=== PATIENT | female | born 1980 | race African-American/Black ===

== ENCOUNTER 2017-10-14 15:09 | Inpatient (IN) | payer OTHER ==
--- NOTE | 2017-10-14 15:29 | PDOC ---
Rapid Medical Evaluation Time Seen by Provider: 10/14/17 15:23 Medical Evaluation: Allergies Allergy/AdvReac Type Severity Reaction Status Date / Time No Known Allergies Allergy Verified 10/14/17 15:23 10/14/17 15:24 I have performed a brief in-person evaluation of this patient. The patient presents with a chief complaint of: off pill for months, started last week again by OBGYN, "serious cramping", constipated, vomited today Pertinent physical exam findings: uncomfortable appearing I have ordered the following: labs The patient will proceed to the ED for further evaluation. Discharge Disposition - Diagnosis Abdominal pain - Referrals - Patient Instructions - Post Discharge Activity
[2017-10-14 18:00] LABS: INR 1.05 (0.82-1.09); PROTHROMBIN TIME (PATIENT) 11.9 SEC (9.98-11.88)
[2017-10-14 18:17] LABS: ALBUMIN 4.5 g/dl (3.4-5.0); ANION GAP 11 (8-16); BLOOD UREA NITROGEN 11 mg/dL (7-18); CALCIUM 9.1 mg/dL (8.5-10.1); CHLORIDE 103 mmol/L (98-107); CO2 22 mmol/L (21-32); CREATININE 0.8 mg/dL (0.55-1.02); GLUCOSE,RANDOM 135 mg/dL (74-106); SGPT/ALT 30 U/L (12-78); SODIUM 136 mmol/L (136-145)
[2017-10-14 18:19] LABS: ALK PHOS 74 U/L (45-117); BILIRUBIN,TOTAL 0.8 mg/dL (0.2-1.0); TOT PROT 8.6 g/dl (6.4-8.2)
[2017-10-14 18:20] LABS: POTASSIUM 4.2 mmol/L (3.5-5.1); SGOT/AST 24 U/L (15-37)
--- NOTE | 2017-10-14 19:49 | PDOC ---
History of Present Illness - General History Source: Patient Exam Limitations: No Limitations - History of Present Illness Initial Comments: 10/14/17 20:49 Patient is a 37 year old female with no significant past medical history who presents to the ED with complaints of of diffuse abdominal cramping that began this morning. Patient reports experiencing abdominal cramping this morning that she states began after going back onto prescription of control medication. She reports experiencing intermittent episodes of nausea, and vomiting. Patient reports experiencing constipation ,stating she has not been able to have a bowel movement all day today. Denies chest pain, sob. Denies fevers, chills. Denies contact with sick individuals, out of state travelling. Denies any other symptoms. Allergies: None Social history: No smoking. No alcohol. No illicit drugs. Surgical history: None PMD: None <Leobardo Hobbs - Last Filed: 10/14/17 20:49> - General History Source: Patient <Conner Tavares - Last Filed: 10/15/17 00:47> - General Stated Complaint: ABD PAIN, NAUSEA/VOMITING Time Seen by Provider: 10/14/17 15:23 Past History <Leobardo Hobbs - Last Filed: 10/14/17 20:49> - Past Medical History Asthma: No Cancer: No Cardiac Disorders: No COPD: No Diabetes: No HTN: No Seizures: No Thyroid Disease: No - Suicide/Smoking/Psychosocial Hx Smoking History: Never smoked Have you smoked in the past 12 months: No Hx Alcohol Use: No Drug/Substance Use Hx: No Substance Use Type: None Hx Substance Use Treatment: No <Conner Tavares - Last Filed: 10/15/17 00:47> - Past Medical History Allergies/Adverse Reactions: Allergies Allergy/AdvReac Type Severity Reaction Status Date / Time No Known Allergies Allergy Verified 10/14/17 15:23 Home Medications: Ambulatory Orders Norgestimate-Ethinyl Estradiol [Ortho Tri-Cyclen Lo Tablet] 1 each PO DAILY Review of Systems - Review of Systems Able to Perform ROS?: Yes Comments:: 10/14/17 20:50 CONSTITUTIONAL: Absent: fever, no chills, no fatigue EYES: Absent: visual changes ENT: Absent: ear pain, no sore throat CARDIOVASCULAR: Absent: chest pain, no palpitations RESPIRATORY: Absent: cough, no SOB GI: +Abdominal cramping. +Nausea. +vomiting. +constipation. Absent: no diarrhea GENITOURINARY: Absent: dysuria, no frequency, no hematuria MUSCULOSKELETAL: Absent: back pain, no arthralgia, no myalgia SKIN: Absent: rash All Other Systems: Reviewed and Negative <Leobardo Hobbs - Last Filed: 10/14/17 20:49> *Physical Exam - Vital Signs Last Vital Signs Temp Pulse Resp BP Pulse Ox 98.2 F 70 18 128/96 100 10/14/17 15:23 10/14/17 15:23 10/14/17 15:23 10/14/17 15:23 10/14/17 15:23 - Physical Exam Comments: 10/14/17 20:51 GENERAL: Well-appearing, well-nourished. No apparent distress. HEENT: Normocephalic, atraumatic. PERRL, EOM intact. CARDIOVASCULAR: Normal S1, S2. Regular rate and rhythm. PULMONARY: Clear to auscultation bilaterally. ABDOMEN: +Mildly diffusely tenderness throughout abdomen. Soft, non-distended, non-tender. EXTREMITIES: Normal ROM in all four extremities. No gross deformities. SKIN: Warm, dry. No rash NEUROLOGICAL: No focal neurological deficits. <FabyLeobardo - Last Filed: 10/14/17 20:49> - Vital Signs Last Vital Signs Temp Pulse Resp BP Pulse Ox 98.2 F 70 18 128/96 100 10/14/17 15:23 10/14/17 15:23 10/14/17 15:23 10/14/17 15:23 10/14/17 15:23 <Conner Tavares - Last Filed: 10/15/17 00:47> ED Treatment Course - LABORATORY CBC & Chemistry Diagram: 10/14/17 17:18 - ADDITIONAL ORDERS Additional order review: Laboratory Results 10/14/17 10/14/17 10/14/17 18:35 18:35 17:18 PT with INR 11.90 H INR 1.05 Sodium Potassium Chloride Carbon Dioxide Anion Gap BUN Creatinine Creat Clearance w eGFR Random Glucose Calcium Total Bilirubin AST ALT Alkaline Phosphatase Total Protein Albumin Lipase Urine Color Yellow Urine Appearance Clear Urine pH 7.0 Ur Specific [place] 1.024 Urine Protein Negative Urine Glucose (UA) Negative Urine Ketones Trace H Urine Blood 1+ H Urine Nitrite Negative Urine Bilirubin Negative Urine Urobilinogen Negative Ur Leukocyte Esterase Negative Urine HCG, Qual Negative 10/14/17 10/14/17 17:18 17:17 PT with INR INR Sodium 136 Potassium 4.2 Chloride 103 Carbon Dioxide 22 Anion Gap 11 BUN 11 Creatinine 0.8 Creat Clearance w eGFR > 60 Random Glucose 135 H Calcium 9.1 Total Bilirubin 0.8 D AST 24 ALT 30 Alkaline Phosphatase 74 Total Protein 8.6 H Albumin 4.5 Lipase 111 Urine Color Urine Appearance Urine pH Ur Specific [place] Urine Protein Urine Glucose (UA) Urine Ketones Urine Blood Urine Nitrite Urine Bilirubin Urine Urobilinogen Ur Leukocyte Esterase Urine HCG, Qual <Leobardo Hobbs - Last Filed: 10/14/17 20:49> - LABORATORY CBC & Chemistry Diagram: 10/14/17 20:40 10/14/17 17:18 - ADDITIONAL ORDERS Additional order review: Laboratory Results 10/14/17 10/14/17 17:18 17:18 PT with INR 11.90 H INR 1.05 Sodium 136 Potassium 4.2 Chloride 103 Carbon Dioxide 22 Anion Gap 11 BUN 11 Creatinine 0.8 Creat Clearance w eGFR > 60 Random Glucose 135 H Calcium 9.1 Total Bilirubin 0.8 D AST 24 ALT 30 Alkaline Phosphatase 74 Total Protein 8.6 H Albumin 4.5 <Conner Tavares - Last Filed: 10/15/17 00:47> Medical Decision Making - Medical Decision Making 10/15/17 00:45 Dr. Tavares: The scribe's documentation has been prepared under my direction and personally reviewed by me in its entirery. I confirm that the note above accurately reflects all work, treatment, procedures, and medical decision making performed by me. Patient found acute appendicitis on CAT scan the abdomen pelvis. patient hemodynamically stable. Will antibiotics and admit pt. <Conner Tavares - Last Filed: 10/15/17 00:47> *DC/Admit/Observation/Transfer - Attestations Scribe Attestion: 10/14/17 20:51 Documentation prepared by Leobardo Hobbs, acting as certified medical asst for Conner Tavares MD/DO. <Leobardo Hobbs - Last Filed: 10/14/17 20:49> - Discharge Dispostion Admit: Yes <Conner Tavares - Last Filed: 10/15/17 00:47> Diagnosis at time of Disposition: Abdominal pain Qualifiers: Abdominal location: generalized Qualified Code(s): R10.84 - Generalized abdominal pain Acute appendicitis Qualifiers: Acute appendicitis type: other Qualified Code(s): K35.89 - Other acute appendicitis - Discharge Dispostion Condition at time of disposition: Stable
[2017-10-14] MEDS ORDERED: SODIUM PHOSPHATE/NA BIPHOS 133 ML ENEMA PR ONE (19:50)
[2017-10-14] MEDS ORDERED: ONDANSETRON *ODT* 4 MG TABLET SL ONE (19:50)
[2017-10-14] MEDS ORDERED: ONDANSETRON *ODT* 4 MG TABLET ONE (20:04)
[2017-10-14 20:39] LABS: URINE APPEARANCE CLEAR; URINE BILIRUBIN NEGATIVE (NEGATIVE); URINE BLOOD 1+ (NEGATIVE); URINE COLOR YELLOW; URINE GLUCOSE (UA) NEGATIVE (NEGATIVE); URINE KETONE TRACE (NEGATIVE); URINE LEUK ESTERASE NEGATIVE (NEGATIVE); URINE NITRITE NEGATIVE (NEGATIVE); URINE PROTEIN NEGATIVE (NEGATIVE); URINE UROBILINOGEN NEGATIVE mg/dL (0.2-1.0)
[2017-10-14 20:53] LABS: EPI CELLS RARE /HPF (FEW); URINE BACTERIA RARE /hpf (NONE SEEN); URINE MUCUS RARE
[2017-10-14] MEDS ORDERED: KETOROLAC TROMETHAMINE 30 MG/1 ML VIAL IVPUSH ONE (21:20)
[2017-10-14] MEDS ORDERED: KETOROLAC TROMETHAMINE 30 MG/1 ML VIAL ONE (21:29)
[2017-10-14 21:41] LABS: BASO % 0.3 % (0-2.0); HEMATOCRIT 39.3 % (32.4-45.2); HEMOGLOBIN 12.7 GM/dL (10.7-15.3); LYMPH % 4.4 % (8-40); MCH 27.2 pg (25.7-33.7); MCHC 32.2 g/dl (32.0-36.0); MEAN CELL VOLUME 84.3 fl (80-96); MEAN PLT VOLUME 9.9 fl (7.5-11.1); MONO % 6.9 % (3.8-10.2); NEUT % 88.4 % (42.8-82.8); PLATELET COUNT 224 K/MM3 (134-434); RBC 4.66 M/mm3 (3.60-5.2); RDW 13.1 % (11.6-15.6); WHITE BLOOD COUNT 14.7 K/mm3 (4.0-10.0)
[2017-10-14] MEDS ORDERED: LACTULOSE 20 GM/30 ML UDC (FOR ORAL USE ONLY) PO ONE ×2 (21:52→22:00)
[2017-10-14] MEDS ORDERED: LACTULOSE 20 GM/30 ML UDC (FOR ORAL USE ONLY) ONE ×2 (21:53→22:01)
[2017-10-14] MEDS ORDERED: INSULIN (NOVOLOG) ASPART 100 UNITS/ML 10ML VIAL ONE (22:01)
[2017-10-14] MEDS ORDERED: SODIUM CHLORIDE 1,000 ML IV STA (22:16)
[2017-10-15] MEDS ORDERED: PIPERACILLIN/TAZOB 4.5 GM 4.5 GM/100 ML BAG IVPB ONE ×2 (00:51→01:41)
--- NOTE | 2017-10-15 01:32 | PN ---
Teaching Attending Note Name of Resident: Elaine Marrero ATTENDING PHYSICIAN STATEMENT I saw and evaluated the patient. I reviewed the resident's note and discussed the case with the resident. I agree with the resident's findings and plan as documented. SUBJECTIVE: 37 F with no Pmhx who presents with lower quadrant abdominal pain. Pain is non radiating. States she vomited X1 this morning NBNB. States she has had intermittent episodes of nausea. States she had worsened pain when traveling in a car. Notes she felt chills, and subjective fevers at home. States pain has now subsided. Denies any chest pain, pressure or n/v/d currently. States she recently received pain medication and thus has no abdominal pain. OBJECTIVE: Physical: VS: Vital Signs Period Temp Pulse Resp BP Sys/[place] Pulse Ox Last 24 Hr 98.2 F 70 18 128/96 100 GEN: NAD, Resting in bed, AAOX3 HEENT: NCAT, PERRL, throat without erythema or exudates CARD: RRR S1, S2 RESP: CTAB ABD: BSx4, NTD to palpation EXT: - C/C/E CBCD WBC 14.7 K/mm3 (4.0-10.0) H 10/14/17 20:40 RBC 4.66 M/mm3 (3.60-5.2) D 10/14/17 20:40 Hgb 12.7 GM/dL (10.7-15.3) D 10/14/17 20:40 Hct 39.3 % (32.4-45.2) D 10/14/17 20:40 MCV 84.3 fl (80-96) 10/14/17 20:40 MCHC 32.2 g/dl (32.0-36.0) 10/14/17 20:40 RDW 13.1 % (11.6-15.6) 10/14/17 20:40 Plt Count 224 K/MM3 (134-434) 10/14/17 20:40 MPV 9.9 fl (7.5-11.1) D 10/14/17 20:40 CMP Sodium 136 mmol/L (136-145) 10/14/17 17:18 Potassium 4.2 mmol/L (3.5-5.1) 10/14/17 17:18 Chloride 103 mmol/L (98-107) 10/14/17 17:18 Carbon Dioxide 22 mmol/L (21-32) 10/14/17 17:18 Anion Gap 11 (8-16) 10/14/17 17:18 BUN 11 mg/dL (7-18) 10/14/17 17:18 Creatinine 0.8 mg/dL (0.55-1.02) 10/14/17 17:18 Creat Clearance w eGFR > 60 (>60) 10/14/17 17:18 Random Glucose 135 mg/dL (74-106) H 10/14/17 17:18 Calcium 9.1 mg/dL (8.5-10.1) 10/14/17 17:18 Total Bilirubin 0.8 mg/dL (0.2-1.0) D 10/14/17 17:18 AST 24 U/L (15-37) 10/14/17 17:18 ALT 30 U/L (12-78) 10/14/17 17:18 Alkaline Phosphatase 74 U/L (45-117) 10/14/17 17:18 Total Protein 8.6 g/dl (6.4-8.2) H 10/14/17 17:18 Albumin 4.5 g/dl (3.4-5.0) 10/14/17 17:18 EKG- PENDING CT ABD/PELVIS: 1.8 Cm Appendix containing fluid and multiple appendicoliths c/w acute appendicitis. Umbilical hernia containing fat. Incidental Hemangioma L2. ASSESSMENT AND PLAN: 37 F with no pmhx presents with abdominal Pain, found to have a acute appendicitis 1.) Acute Appendicitis - NPO - Type & Screen - Coags - Zosyn - Sx. Consult - IVF 2.) Dvt ppx - Scds Place in Med-Sx
[2017-10-15] MEDS ORDERED: MORPHINE SULFATE 10 MG/1 ML *VIAL IVPUSH PRN ×4 (02:28→16:42)
--- NOTE | 2017-10-15 03:10 | HP ---
CHIEF COMPLAINT: Abdominal pain and vomiting x 1 day PCP: HISTORY OF PRESENT ILLNESS: Pt is a 37 yo F with no sig PMHx presenting with a one day hx of abdominal pain and vomiting. The pain was 10/10, initially periumbilical then radiating to the suprapubic area. It was worsened by ingestion of food with associated vomiting. Patient had over 5 episodes of vomiting, non bloody, recently ingested food/liquids. There was no diarrhea, but there was associated constipation and dysuria, but no increased urinary frequency. Patient noted chills but had no objectively documented fevers prior to presentation. No change in diet, and no recent sick contacts or contacts with similar symptoms. No hx of recent travel. Patient presented in the ED today an requested enemas for 'constipation" with no relief and was found on Ct abdoment and pelvis to have acute appendicitis. ER course was notable for: (1)WBC-14.7, Lactic acid-3.24 (2) Cx- bld, urine (3) CT abd/pelvis- acute appendicitis (4) normal saline 1L, zosyn, enema, ketorolac, lactulose, zofran Recent Travel: None PAST MEDICAL HISTORY: None PAST SURGICAL HISTORY: None Social History: Smoking:Never Alcohol:Social Drugs: None Family History: Allergies No Known Allergies Allergy (Verified 10/14/17 15:23) HOME MEDICATIONS: Home Medications Medication Instructions Recorded Norgestimate-Ethinyl Estradiol 1 each PO DAILY 10/14/17 [Ortho Tri-Cyclen Lo Tablet] REVIEW OF SYSTEMS CONSTITUTIONAL: chills+, loss of appetite+, Absent: fever, diaphoresis, generalized weakness, malaise, weight change HEENT: Absent: rhinorrhea, nasal congestion, throat pain, throat swelling, difficulty swallowing, mouth swelling, ear pain, eye pain, visual changes CARDIOVASCULAR: Absent: chest pain, syncope, palpitations, irregular heart rate, lightheadedness , peripheral edema RESPIRATORY: Absent: cough, shortness of breath, dyspnea with exertion, orthopnea, wheezing, stridor, hemoptysis GASTROINTESTINAL: abdominal pain+, nausea+, vomiting+,constipation+ Absent: abdominal distension, diarrhea, , melena, hematochezia GENITOURINARY: dysuria+, Absent: frequency, urgency, hesitancy, hematuria, flank pain, genital pain MUSCULOSKELETAL: Absent: myalgia, arthralgia, joint swelling, back pain, neck pain SKIN: Absent: rash, itching, pallor HEMATOLOGIC/IMMUNOLOGIC: Absent: easy bleeding, easy bruising, lymphadenopathy, frequent infections ENDOCRINE: Absent: unexplained weight gain, unexplained weight loss, heat intolerance, cold intolerance NEUROLOGIC: Absent: headache, focal weakness or paresthesias, dizziness, unsteady gait, seizure, mental status changes, bladder or bowel incontinence PSYCHIATRIC: Absent: anxiety, depression, suicidal or homicidal ideation, hallucinations. PHYSICAL EXAMINATION Vital Signs - 24 hr 10/14/17 15:23 Temperature 98.2 F Pulse Rate 70 Respiratory 18 Rate Blood Pressure 128/96 O2 Sat by Pulse 100 Oximetry (%) GENERAL: Sitting up in a chair, awake, alert, and fully oriented, in no acute painful distress, sating well in room air. HEAD: Mild facial asymmetry, with scar on R lower jaw. No facial droop. EYES: Pupils equal, round and reactive to light, not pale, sclera anicteric, conjunctiva clear. EARS, NOSE, THROAT: oropharynx clear without exudates. Moist mucous membranes. NECK: Normal range of motion, supple LUNGS: Breath sounds equal, clear to auscultation bilaterally. HEART: Regular rate and rhythm, normal S1 and S2 ABDOMEN: Full, firm, mild supra pubic tenderness, bowel sounds present, no guarding, no rebound, no masses. Psoas and obturator signs could not be elicited MUSCULOSKELETAL: Normal range of motion at all joints. No bony deformities or tenderness. No CVA tenderness. UPPER EXTREMITIES: 2+ pulses, warm, well-perfused. No cyanosis. No clubbing. No peripheral edema. LOWER EXTREMITIES: 2+ pulses, warm, well-perfused. No calf tenderness. No peripheral edema. NEUROLOGICAL: Cranial nerves II-XII intact. Normal speech. PSYCHIATRIC: Cooperative. Good eye contact. Appropriate mood and affect. Laboratory Results - last 24 hr CBC, BMP 10/14/17 20:40 10/14/17 17:18 10/14/17 10/14/17 10/14/17 17:17 17:18 17:18 WBC RBC Hgb Hct MCV MCH MCHC RDW Plt Count MPV Neutrophils % Lymphocytes % Monocytes % Eosinophils % Basophils % PT with INR 11.90 H INR 1.05 Sodium 136 Potassium 4.2 Chloride 103 Carbon Dioxide 22 Anion Gap 11 BUN 11 Creatinine 0.8 Creat Clearance w eGFR > 60 Random Glucose 135 H Lactic Acid Calcium 9.1 Total Bilirubin 0.8 D AST 24 ALT 30 Alkaline Phosphatase 74 Total Protein 8.6 H Albumin 4.5 Lipase 111 Urine Color Urine Appearance Urine pH Ur Specific [place] Urine Protein Urine Glucose (UA) Urine Ketones Urine Blood Urine Nitrite Urine Bilirubin Urine Urobilinogen Ur Leukocyte Esterase Urine WBC (Auto) Urine RBC (Auto) Ur Epithelial Cells Urine Bacteria Urine Mucus Urine HCG, Qual Blood Type Antibody Screen 10/14/17 10/14/17 10/14/17 18:35 18:35 18:35 WBC RBC Hgb Hct MCV MCH MCHC RDW Plt Count MPV Neutrophils % Lymphocytes % Monocytes % Eosinophils % Basophils % PT with INR INR Sodium Potassium Chloride Carbon Dioxide Anion Gap BUN Creatinine Creat Clearance w eGFR Random Glucose Lactic Acid 3.2 H* Calcium Total Bilirubin AST ALT Alkaline Phosphatase Total Protein Albumin Lipase Urine Color Yellow Urine Appearance Clear Urine pH 7.0 Ur Specific [place] 1.024 Urine Protein Negative Urine Glucose (UA) Negative Urine Ketones Trace H Urine Blood 1+ H Urine Nitrite Negative Urine Bilirubin Negative Urine Urobilinogen Negative Ur Leukocyte Esterase Negative Urine WBC (Auto) 1 Urine RBC (Auto) 36 Ur Epithelial Cells Rare Urine Bacteria Rare Urine Mucus Rare Urine HCG, Qual Blood Type B POSITIVE Antibody Screen Negative 10/14/17 10/14/17 10/15/17 18:35 20:40 01:06 WBC 14.7 H RBC 4.66 D Hgb 12.7 D Hct 39.3 D MCV 84.3 MCH 27.2 MCHC 32.2 RDW 13.1 Plt Count 224 MPV 9.9 D Neutrophils % 88.4 H Lymphocytes % 4.4 L D Monocytes % 6.9 Eosinophils % 0.0 D Basophils % 0.3 PT with INR INR Sodium Potassium Chloride Carbon Dioxide Anion Gap BUN Creatinine Creat Clearance w eGFR Random Glucose Lactic Acid 1.9 Calcium Total Bilirubin AST ALT Alkaline Phosphatase Total Protein Albumin Lipase Urine Color Urine Appearance Urine pH Ur Specific [place] Urine Protein Urine Glucose (UA) Urine Ketones Urine Blood Urine Nitrite Urine Bilirubin Urine Urobilinogen Ur Leukocyte Esterase Urine WBC (Auto) Urine RBC (Auto) Ur Epithelial Cells Urine Bacteria Urine Mucus Urine HCG, Qual Negative Blood Type Antibody Screen ASSESSMENT/PLAN: 37 yo F with no sig PMHx presenting with a one day hx of abdominal pain and vomiting and found to have acute appendicitis on CT abd/pelvis with contrast. Acute appendicitis: Leucocytosis-14, periumbilical and lower abd pain, n/v, CT findings Pain mx- received ketorolac in ED, iv morphine 2mg /1mg Q4h PRN Iv Normal saline - 1L stat- received Trend Lactic acid 3.24>> 1.9 ID consult- Dr Amira Moody 4.45g daily NPO EKG Type and screen Coags Surgical consult- Dr Radha Garzon Hold heparin SQ- for surgery SCDs Monitor lytes and replete as needed UA--ve Cx- bld and urine- pending CXR-no acute pathology noted FEN: Normal saline @83/hr Monitor lytes, replete as needed NPO for now Prophylaxis: SCDs- hold heparin sq Dispo: Admit med surg Visit type - Emergency Visit Emergency Visit: Yes ED Registration Date: 10/15/17 Care time: The patient presented to the Emergency Department on the above date and was hospitalized for further evaluation of their emergent condition. - New Patient This patient is new to me today: Yes Date on this admission: 10/15/17 - Critical Care Critical Care patient: No
[2017-10-15] MEDS ORDERED: SODIUM CHLORIDE 1,000 ML IV SCH (03:15)
[2017-10-15 07:45] LABS: BASO % 0.1 % (0-2.0); HEMOGLOBIN 11.4 GM/dL (10.7-15.3); LYMPH % 5.6 % (8-40); MCH 27.3 pg (25.7-33.7); MCHC 32.5 g/dl (32.0-36.0); MEAN CELL VOLUME 83.9 fl (80-96); MEAN PLT VOLUME 9.1 fl (7.5-11.1); MONO % 8.8 % (3.8-10.2); NEUT % 85.5 % (42.8-82.8); PLATELET COUNT 214 K/MM3 (134-434); RBC 4.16 M/mm3 (3.60-5.2); RDW 13.2 % (11.6-15.6); WHITE BLOOD COUNT 15.9 K/mm3 (4.0-10.0)
[2017-10-15 07:51] LABS: INR 1.36 (0.82-1.09); PROTHROMBIN TIME (PATIENT) 15.4 SEC (9.98-11.88)
[2017-10-15 08:26] LABS: CHLORIDE 105 mmol/L (98-107); POTASSIUM 3.5 mmol/L (3.5-5.1); SODIUM 138 mmol/L (136-145)
[2017-10-15 08:33] LABS: ALBUMIN 3.7 g/dl (3.4-5.0); ALK PHOS 61 U/L (45-117); ANION GAP 11 (8-16); BILIRUBIN,TOTAL 0.8 mg/dL (0.2-1.0); BLOOD UREA NITROGEN 11 mg/dL (7-18); CO2 22 mmol/L (21-32); CREATININE 0.9 mg/dL (0.55-1.02); GLUCOSE,RANDOM 116 mg/dL (74-106); MAGNESIUM 1.8 mg/dL (1.8-2.4); PHOSPHOROUS 3.5 mg/dL (2.5-4.9); SGOT/AST 17 U/L (15-37); SGPT/ALT 24 U/L (12-78)
[2017-10-15] MEDS ORDERED: D5-NS + 20 MEQ KCL - 20 MEQ/1,000 ML INFUS.BAG IV SCH ×2 (09:45→16:42)
[2017-10-15] MEDS ORDERED: MORPHINE SULFATE 10 MG/1 ML *VIAL ONE (12:20)
[2017-10-15] MEDS ORDERED: DEXAMETHASONE SOD PHOSPHATE 4 MG/1 ML VIAL ONE (13:50)
[2017-10-15] MEDS ORDERED: LIDOCAINE HCL 2% 100 MG/5 ML DISP.SYRIN ONE (13:50)
[2017-10-15] MEDS ORDERED: PROPOFOL 20 ML ONE (13:50)
[2017-10-15] MEDS ORDERED: fentaNYL CITRATE 250 MCG/5 ML VIAL ONE (13:50)
[2017-10-15] MEDS ORDERED: MIDAZOLAM HCL 2 MG/2 ML SINGLE DOSE VIAL ONE (13:51)
[2017-10-15] MEDS ORDERED: ROCURONIUM BROMIDE 50 MG/5 ML VIAL ONE (13:51)
--- NOTE | 2017-10-15 13:54 | PN ---
Progress Note (short form) - Note Progress Note: surgery pt seen and examined. full consult dictated. 37f with 1 day abd pain and vomiting with elevated wbc and ct showing acute appencitis. on exam abd is soft, with localized rlq tenderness Plan- clinically acute appendictis, agree with admission and zosyn. will move in direction of surgery.
--- NOTE | 2017-10-15 14:02 | CON.ID ---
Consult Consult Specialty:: infectious diseases Reason for Consultation:: abd pain,appendicitis - History of Present Illness Chief Complaint: abd pain rlq History of Present Illness: 37 yo F with no PMHx presenting with a one day hx of abdominal pain and vomiting. patient was having severe abd pain which was classical which was also associated with vomiting and was worsened with food. 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) - Alcohol/Substance Use Hx Alcohol Use: No History of Substance Use: reports: None - Smoking History Smoking history: Never smoked Have you smoked in the past 12 months: No - Social History History of Recent Travel: No Home Medications - Allergies Allergies/Adverse Reactions: Allergies Allergy/AdvReac Type Severity Reaction Status Date / Time No Known Allergies Allergy Verified 10/14/17 15:23 - Home Medications Home Medications: Ambulatory Orders Norgestimate-Ethinyl Estradiol [Ortho Tri-Cyclen Lo Tablet] 1 each PO DAILY Review of Systems - Review of Systems Constitutional: reports: Chills Eyes: reports: No Symptoms HENT: reports: No Symptoms Neck: reports: No Symptoms Cardiovascular: reports: No Symptoms Respiratory: reports: No Symptoms Gastrointestinal: reports: Abdominal Pain, Vomiting Genitourinary: reports: No Symptoms Musculoskeletal: reports: No Symptoms Integumentary: reports: No Symptoms Neurological: reports: No Symptoms Endocrine: reports: No Symptoms Hematology/Lymphatic: reports: No Symptoms Psychiatric: reports: No Symptoms Physical Exam Vital Signs: Vital Signs Temperature 100.4 F H 10/15/17 13:47 Pulse Rate 109 H 10/15/17 13:00 Respiratory Rate 18 10/15/17 13:00 Blood Pressure 133/75 10/15/17 13:00 O2 Sat by Pulse Oximetry (%) 100 10/14/17 15:23 Constitutional: Yes: Well Nourished, Calm, Mild Distress, Obese Eyes: Yes: Conjunctiva Clear Neck: Yes: Supple, Trachea Midline Cardiovascular: Yes: Regular Rate and Rhythm Respiratory: Yes: Regular, CTA Bilaterally Gastrointestinal: Yes: Soft, Abdomen, Obese, Tenderness (rt lower quadrant), Vomiting. No: Palpable Mass, Tenderness, Epigastrium, Tenderness, Rebound Renal/: No: CVA Tenderness - Left, CVA Tenderness - Right Musculoskeletal: Yes: WNL Extremities: Yes: WNL Neurological: Yes: Alert, Oriented Psychiatric: Yes: Alert, Oriented Labs: CBC, BMP 10/15/17 06:19 10/15/17 06:19 Imaging - Results Chest X-ray: Report Reviewed, Image Reviewed Cat Scan: Report Reviewed, Image Reviewed Assessment/Plan this patient coming in with abd pain and vomiting diagnosed with ac appendicitis ac appendicitis vomiting abd pain leukocytosis plan will start patient on zosyn plan for surgery
--- NOTE | 2017-10-15 14:22 | OP ---
Operative Note - Note: Operative Date: 10/15/17 Pre-Operative Diagnosis: acute appendicitis Operation: laparoscopic appendectoctomy lavage Findings: suppurative,gangrenous, non perforated appendix Surgeon: Remi Lynn Anesthesiologist/APPRAISAL ANALYST: Tez Hollins Specimens Removed: appendix Estimated Blood Loss (mls): 10
--- NOTE | 2017-10-15 14:32 | CONS ---
DATE OF CONSULTATION: 10/15/2017 REASON FOR CONSULTATION: Acute appendicitis. This is an emergency room consultation at the request of the emergency room physician. BRIEF HISTORY: This is a 37-year-old female who presents to [facility] emergency room with a 1-day history of abdominal pain and vomiting. She was noted to have right lower quadrant tenderness and elevated white blood cell count and a CAT scan consistent with acute uncomplicated appendicitis. She was admitted to the hospital, started on Zosyn antibiotic and a surgical consultation was requested. She denies blood in her vomit. She denies diarrhea. Denies eating any food that may have been tainted. PAST MEDICAL HISTORY: Otherwise negative. PAST SURGICAL HISTORY: Includes a D & C after her . SOCIAL HISTORY: Negative for alcohol. Negative for tobacco. FAMILY HISTORY: Negative for malignancy in the immediate family. ALLERGIES: She has no known drug allergies. HOME MEDICATIONS: Only include control pills. REVIEW OF SYSTEMS: General: Denies fatigue or malaise. Cardiac: Denies chest pain or palpitations. Respiratory: Denies shortness of breath or wheeze. Gastrointestinal: As stated in HPI. Genitourinary: Denies dysuria. Musculoskeletal: Denies joint pain, joint swelling. Psychiatric: Denies anxiety, depression or hearing voices. PHYSICAL EXAMINATION: General: This is a well-developed, well-nourished 37-year-old female in no distress. Vital Signs: She is currently febrile with a fever of 101.6, her heart rate is 109. HEENT: Her head is normocephalic. Her sclerae are anicteric. Neck: Supple. Chest: Clear. Abdomen: Soft. She has localized right lower quadrant tenderness. She has no surgical scars. She has a ventral hernia which is reducible and nontender. Extremities: Have no edema. LABORATORY DATA: On review of her laboratory, her white blood cell count is elevated at 15.9 which is up from 14.7. She has a shift. Her chemistries are unremarkable with a lactic acid that was 3.2 on admission and is 1.9 today. IMAGING: On review of her imaging, she has a CAT scan of her abdomen and pelvis which is officially read with findings consistent with acute appendicitis with appendicolith with minimal surrounding free fluid. ASSESSMENT: This is a 37-year-old female with right lower quadrant pain, right lower quadrant tenderness, leukocytosis, fever and computed axial tomography evidence of acute appendicitis. Clinically, this is acute appendicitis with sepsis. She meets sepsis criteria with a fever of 101.6, heart rate over 100 and suspected source of infection. RECOMMENDATIONS: At this point, I agree with admission. I agree with Zosyn antibiotic. Will move in the direction of surgery. Risks and benefits of surgery have been explained to patient in detail. These are including, but not limited to, the possibility of conversion to open, the possibility of injury to viscera or bladder, the possibility of blood loss requiring blood transfusion, possibility of staple line dehiscence, possibility of infection, possibility of future obstruction, possibility of future hernia, plus a multitude of medical risks, including, but not limited to, cardiac, neurologic, pulmonary and vascular complications and even . The patient understands these risks and is agreeable to surgery. DO CHARLIE BARRAZA/[id number]
[2017-10-15 14:58] VITALS: BMI 31.3
[2017-10-15] MEDS ORDERED: PIPERACILLIN/TAZOB 3.375 GM 3.375 GM in DEXTROSE 5%-WATER - 50 ML IVPB SCH (15:00)
[2017-10-15] MEDS ORDERED: GLYCOPYRROLATE 0.2 MG/1 ML VIAL ONE (15:07)
[2017-10-15] MEDS ORDERED: NEOSTIGMINE METHYLSULFATE 0.5 MG/ML - 10 ML MDV ONE (15:07)
--- NOTE | 2017-10-15 15:31 | PN ---
Teaching Attending Note Name of Resident: Alexi Michele ATTENDING PHYSICIAN STATEMENT Time of evaluation: 9:40 AM I saw and evaluated the patient. I reviewed the resident's note and discussed the case with the resident. I agree with the resident's findings and plan as documented. SUBJECTIVE: patient seen and examined. still with right lower abdominal pain. No fevers/ chills/nausea, vomiting currently. OBJECTIVE: Vital Signs Period Temp Pulse Resp BP Sys/[place] Pulse Ox Last 24 Hr 98.8 F-101.6 F 93-109 -18 126-133/66-75 100 Intake & Output 10/12/17 10/13/17 10/14/17 10/15/17 23:59 23:59 23:59 23:59 Intake Total 0 Output Total 20 Balance -20 Weight 215 lb 200 lb general: sitting in bed in no acute distress Abdomen: soft obese, tenderness, positive tenderness at McBurney's point, Positive Rovsing's sign, no rigidity, positive bowel sounds Home Medication List Medication Instructions Recorded Confirmed Type Norgestimate-Ethinyl Estradiol 1 each PO DAILY 10/14/17 10/15/17 History [Ortho Tri-Cyclen Lo Tablet] Active Medications Generic Name Dose Route Start Last Admin Trade Name Freq PRN Reason Stop Dose Admin Enoxaparin Sodium 40 mg 10/16/17 10:00 Lovenox - SQ DAILY TIEN Dextrose/Sodium Chloride 20 meq in 1,000 mls @ 100 mls/hr 10/15/17 09:45 10:10 Dextrose 5%-Normal Saline+20 Meq Kcl - IV 100 mls/hr ASDIR TIEN Administration Piperacillin Sod/Tazobactam 50 mls @ 100 mls/hr 10/15/17 15:00 Sod 3.375 gm/ Dextrose IVPB Q8H-IV TIEN Protocol Morphine Sulfate 2 mg 10/15/17 02:28 10/15/17 12:29 Morphine Injection - IVPUSH 2 mg Q4H PRN Administration PAIN LEVEL 6-10 Morphine Sulfate 1 mg 10/15/17 02:29 Morphine Injection - IVPUSH Q4H PRN PAIN LEVEL 1-5 Pantoprazole Sodium 40 mg 10/16/17 10:00 Protonix Iv IVPUSH DAILY TIEN Laboratory Results - last 24 hr 10/14/17 10/14/17 10/14/17 17:17 17:18 17:18 WBC RBC Hgb Hct MCV MCH MCHC RDW Plt Count MPV Neutrophils % Lymphocytes % Monocytes % Eosinophils % Basophils % PT with INR 11.90 H INR 1.05 PTT (Actin FS) Sodium 136 Potassium 4.2 Chloride 103 Carbon Dioxide 22 Anion Gap 11 BUN 11 Creatinine 0.8 Creat Clearance w eGFR > 60 Random Glucose 135 H Lactic Acid Calcium 9.1 Phosphorus Magnesium Total Bilirubin 0.8 D AST 24 ALT 30 Alkaline Phosphatase 74 Total Protein 8.6 H Albumin 4.5 Lipase 111 Urine Color Urine Appearance Urine pH Ur Specific [place] Urine Protein Urine Glucose (UA) Urine Ketones Urine Blood Urine Nitrite Urine Bilirubin Urine Urobilinogen Ur Leukocyte Esterase Urine WBC (Auto) Urine RBC (Auto) Ur Epithelial Cells Urine Bacteria Urine Mucus Urine HCG, Qual Blood Type Antibody Screen 10/14/17 10/14/17 10/14/17 18:35 18:35 18:35 WBC RBC Hgb Hct MCV MCH MCHC RDW Plt Count MPV Neutrophils % Lymphocytes % Monocytes % Eosinophils % Basophils % PT with INR INR PTT (Actin FS) Sodium Potassium Chloride Carbon Dioxide Anion Gap BUN Creatinine Creat Clearance w eGFR Random Glucose Lactic Acid 3.2 H* Calcium Phosphorus Magnesium Total Bilirubin AST ALT Alkaline Phosphatase Total Protein Albumin Lipase Urine Color Yellow Urine Appearance Clear Urine pH 7.0 Ur Specific [place] 1.024 Urine Protein Negative Urine Glucose (UA) Negative Urine Ketones Trace H Urine Blood 1+ H Urine Nitrite Negative Urine Bilirubin Negative Urine Urobilinogen Negative Ur Leukocyte Esterase Negative Urine WBC (Auto) 1 Urine RBC (Auto) 36 Ur Epithelial Cells Rare Urine Bacteria Rare Urine Mucus Rare Urine HCG, Qual Blood Type B POSITIVE Antibody Screen Negative 10/14/17 10/14/17 10/15/17 18:35 20:40 01:06 WBC 14.7 H RBC 4.66 D Hgb 12.7 D Hct 39.3 D MCV 84.3 MCH 27.2 MCHC 32.2 RDW 13.1 Plt Count 224 MPV 9.9 D Neutrophils % 88.4 H Lymphocytes % 4.4 L D Monocytes % 6.9 Eosinophils % 0.0 D Basophils % 0.3 PT with INR INR PTT (Actin FS) Sodium Potassium Chloride Carbon Dioxide Anion Gap BUN Creatinine Creat Clearance w eGFR Random Glucose Lactic Acid 1.9 Calcium Phosphorus Magnesium Total Bilirubin AST ALT Alkaline Phosphatase Total Protein Albumin Lipase Urine Color Urine Appearance Urine pH Ur Specific [place] Urine Protein Urine Glucose (UA) Urine Ketones Urine Blood Urine Nitrite Urine Bilirubin Urine Urobilinogen Ur Leukocyte Esterase Urine WBC (Auto) Urine RBC (Auto) Ur Epithelial Cells Urine Bacteria Urine Mucus Urine HCG, Qual Negative Blood Type Antibody Screen 10/15/17 10/15/17 10/15/17 06:19 06:19 06:19 WBC 15.9 H RBC 4.16 Hgb 11.4 D Hct 35.0 MCV 83.9 MCH 27.3 MCHC 32.5 RDW 13.2 Plt Count 214 MPV 9.1 Neutrophils % 85.5 H Lymphocytes % 5.6 L D Monocytes % 8.8 Eosinophils % 0.0 Basophils % 0.1 PT with INR 15.40 H INR 1.36 H PTT (Actin FS) 25.0 L Sodium 138 Potassium 3.5 Chloride 105 Carbon Dioxide 22 Anion Gap 11 BUN 11 Creatinine 0.9 Creat Clearance w eGFR > 60 Random Glucose 116 H Lactic Acid Calcium 8.0 L Phosphorus 3.5 Magnesium 1.8 Total Bilirubin 0.8 AST 17 ALT 24 Alkaline Phosphatase 61 Total Protein 7.0 Albumin 3.7 Lipase Urine Color Urine Appearance Urine pH Ur Specific [place] Urine Protein Urine Glucose (UA) Urine Ketones Urine Blood Urine Nitrite Urine Bilirubin Urine Urobilinogen Ur Leukocyte Esterase Urine WBC (Auto) Urine RBC (Auto) Ur Epithelial Cells Urine Bacteria Urine Mucus Urine HCG, Qual Blood Type Antibody Screen 10/15/17 06:19 WBC RBC Hgb Hct MCV MCH MCHC RDW Plt Count MPV Neutrophils % Lymphocytes % Monocytes % Eosinophils % Basophils % PT with INR INR PTT (Actin FS) Sodium Potassium Chloride Carbon Dioxide Anion Gap BUN Creatinine Creat Clearance w eGFR Random Glucose Lactic Acid Calcium Phosphorus Magnesium Total Bilirubin AST ALT Alkaline Phosphatase Total Protein Albumin Lipase Urine Color Urine Appearance Urine pH Ur Specific [place] Urine Protein Urine Glucose (UA) Urine Ketones Urine Blood Urine Nitrite Urine Bilirubin Urine Urobilinogen Ur Leukocyte Esterase Urine WBC (Auto) Urine RBC (Auto) Ur Epithelial Cells Urine Bacteria Urine Mucus Urine HCG, Qual Blood Type B POSITIVE Antibody Screen Negative CT A/P results reviewed ASSESSMENT AND PLAN: 37 yof with no significant PMHx admitted with sepsis with acute appendicitis -Sepsis with acute gangrenous appendicitis -Obesity Plan: s/p Laparscopic appendectomty 09/14. Monitor for now. Diet per Surgery. Pain control with morphine. IVF, add K to IVF, DVTPPX Dispo planning in 24 hours if no new events. PLan discussed with patient in detail, all questions answered.
--- NOTE | 2017-10-15 15:36 | PN ---
Physical Exam: SUBJECTIVE: Patient seen and examined No acute events overnight. Pt reports that pain is well controlled. She denies any nausea or emesis in the hospital. OBJECTIVE: Vital Signs Period Temp Pulse Resp BP Sys/[place] Pulse Ox Last 24 Hr 98.8 F-101.6 F 93-109 18-18 126-133/66-75 100 GENERAL: middle aged female, awake, alert, and fully oriented, in no acute distress. HEENT: NC, AT, EOMI LUNGS: Breath sounds equal, clear to auscultation bilaterally, no wheezes, no crackles, no accessory muscle use. HEART: Regular rate and rhythm, S1, S2 without murmur, rub or gallop. ABDOMEN: slightly distended, normoactive BS, mildly tender in LLQ and LUQ, moderately tender in RUQ and RLQ, no peritoneal signs EXTREMITIES: 2+ pulses, warm, well-perfused, no edema. NEUROLOGICAL: Cranial nerves II through XII grossly intact. Normal speech, gait not observed. Laboratory Results - last 24 hr 10/14/17 10/14/17 10/14/17 17:17 17:18 17:18 WBC RBC Hgb Hct MCV MCH MCHC RDW Plt Count MPV Neutrophils % Lymphocytes % Monocytes % Eosinophils % Basophils % PT with INR 11.90 H INR 1.05 PTT (Actin FS) Sodium 136 Potassium 4.2 Chloride 103 Carbon Dioxide 22 Anion Gap 11 BUN 11 Creatinine 0.8 Creat Clearance w eGFR > 60 Random Glucose 135 H Lactic Acid Calcium 9.1 Phosphorus Magnesium Total Bilirubin 0.8 D AST 24 ALT 30 Alkaline Phosphatase 74 Total Protein 8.6 H Albumin 4.5 Lipase 111 Urine Color Urine Appearance Urine pH Ur Specific [place] Urine Protein Urine Glucose (UA) Urine Ketones Urine Blood Urine Nitrite Urine Bilirubin Urine Urobilinogen Ur Leukocyte Esterase Urine WBC (Auto) Urine RBC (Auto) Ur Epithelial Cells Urine Bacteria Urine Mucus Urine HCG, Qual Blood Type Antibody Screen 10/14/17 10/14/17 10/14/17 18:35 18:35 18:35 WBC RBC Hgb Hct MCV MCH MCHC RDW Plt Count MPV Neutrophils % Lymphocytes % Monocytes % Eosinophils % Basophils % PT with INR INR PTT (Actin FS) Sodium Potassium Chloride Carbon Dioxide Anion Gap BUN Creatinine Creat Clearance w eGFR Random Glucose Lactic Acid 3.2 H* Calcium Phosphorus Magnesium Total Bilirubin AST ALT Alkaline Phosphatase Total Protein Albumin Lipase Urine Color Yellow Urine Appearance Clear Urine pH 7.0 Ur Specific [place] 1.024 Urine Protein Negative Urine Glucose (UA) Negative Urine Ketones Trace H Urine Blood 1+ H Urine Nitrite Negative Urine Bilirubin Negative Urine Urobilinogen Negative Ur Leukocyte Esterase Negative Urine WBC (Auto) 1 Urine RBC (Auto) 36 Ur Epithelial Cells Rare Urine Bacteria Rare Urine Mucus Rare Urine HCG, Qual Blood Type B POSITIVE Antibody Screen Negative 10/14/17 10/14/17 10/15/17 18:35 20:40 01:06 WBC 14.7 H RBC 4.66 D Hgb 12.7 D Hct 39.3 D MCV 84.3 MCH 27.2 MCHC 32.2 RDW 13.1 Plt Count 224 MPV 9.9 D Neutrophils % 88.4 H Lymphocytes % 4.4 L D Monocytes % 6.9 Eosinophils % 0.0 D Basophils % 0.3 PT with INR INR PTT (Actin FS) Sodium Potassium Chloride Carbon Dioxide Anion Gap BUN Creatinine Creat Clearance w eGFR Random Glucose Lactic Acid 1.9 Calcium Phosphorus Magnesium Total Bilirubin AST ALT Alkaline Phosphatase Total Protein Albumin Lipase Urine Color Urine Appearance Urine pH Ur Specific [place] Urine Protein Urine Glucose (UA) Urine Ketones Urine Blood Urine Nitrite Urine Bilirubin Urine Urobilinogen Ur Leukocyte Esterase Urine WBC (Auto) Urine RBC (Auto) Ur Epithelial Cells Urine Bacteria Urine Mucus Urine HCG, Qual Negative Blood Type Antibody Screen 10/15/17 10/15/17 10/15/17 06:19 06:19 06:19 WBC 15.9 H RBC 4.16 Hgb 11.4 D Hct 35.0 MCV 83.9 MCH 27.3 MCHC 32.5 RDW 13.2 Plt Count 214 MPV 9.1 Neutrophils % 85.5 H Lymphocytes % 5.6 L D Monocytes % 8.8 Eosinophils % 0.0 Basophils % 0.1 PT with INR 15.40 H INR 1.36 H PTT (Actin FS) 25.0 L Sodium 138 Potassium 3.5 Chloride 105 Carbon Dioxide 22 Anion Gap 11 BUN 11 Creatinine 0.9 Creat Clearance w eGFR > 60 Random Glucose 116 H Lactic Acid Calcium 8.0 L Phosphorus 3.5 Magnesium 1.8 Total Bilirubin 0.8 AST 17 ALT 24 Alkaline Phosphatase 61 Total Protein 7.0 Albumin 3.7 Lipase Urine Color Urine Appearance Urine pH Ur Specific [place] Urine Protein Urine Glucose (UA) Urine Ketones Urine Blood Urine Nitrite Urine Bilirubin Urine Urobilinogen Ur Leukocyte Esterase Urine WBC (Auto) Urine RBC (Auto) Ur Epithelial Cells Urine Bacteria Urine Mucus Urine HCG, Qual Blood Type Antibody Screen 10/15/17 06:19 WBC RBC Hgb Hct MCV MCH MCHC RDW Plt Count MPV Neutrophils % Lymphocytes % Monocytes % Eosinophils % Basophils % PT with INR INR PTT (Actin FS) Sodium Potassium Chloride Carbon Dioxide Anion Gap BUN Creatinine Creat Clearance w eGFR Random Glucose Lactic Acid Calcium Phosphorus Magnesium Total Bilirubin AST ALT Alkaline Phosphatase Total Protein Albumin Lipase Urine Color Urine Appearance Urine pH Ur Specific [place] Urine Protein Urine Glucose (UA) Urine Ketones Urine Blood Urine Nitrite Urine Bilirubin Urine Urobilinogen Ur Leukocyte Esterase Urine WBC (Auto) Urine RBC (Auto) Ur Epithelial Cells Urine Bacteria Urine Mucus Urine HCG, Qual Blood Type B POSITIVE Antibody Screen Negative Active Medications Generic Name Dose Route Start Last Admin Trade Name Freq PRN Reason Stop Dose Admin Enoxaparin Sodium 40 mg 10/16/17 10:00 Lovenox - SQ DAILY TIEN Dextrose/Sodium Chloride 20 meq in 1,000 mls @ 100 mls/hr 10/15/17 09:45 10:10 Dextrose 5%-Normal Saline+20 Meq Kcl - IV 100 mls/hr ASDIR TIEN Administration Piperacillin Sod/Tazobactam 50 mls @ 100 mls/hr 10/15/17 15:00 Sod 3.375 gm/ Dextrose IVPB Q8H-IV TIEN Protocol Morphine Sulfate 2 mg 10/15/17 02:28 10/15/17 12:29 Morphine Injection - IVPUSH 2 mg Q4H PRN Administration PAIN LEVEL 6-10 Morphine Sulfate 1 mg 10/15/17 02:29 Morphine Injection - IVPUSH Q4H PRN PAIN LEVEL 1-5 Pantoprazole Sodium 40 mg 10/16/17 10:00 Protonix Iv IVPUSH DAILY [facility] ASSESSMENT/PLAN: 37 F with no pmhx presents with abdominal pain, found to have a acute appendicitis on CT. #Acute Appendicitis - CT abdomen: 1.8cm appendix w/ fluid and multiple appendicoliths. - NPO - pt given zosyn, flagyl, and levaquin in ED. - surgery on board, f/u recs - NS @ 83cc/hr - pain control with morphine -ID on board, f/u recs #FEN/ppx -NS @83cc/hr -K repleted -NPO for surgery -no GI ppx indicated -heparin held for surgery Case discussed with attending, Dr. Garland. -Alexi Michele MD PGY1 Visit type - Emergency Visit Emergency Visit: Yes ED Registration Date: 10/15/17 Care time: The patient presented to the Emergency Department on the above date and was hospitalized for further evaluation of their emergent condition. - New Patient This patient is new to me today: Yes Date on this admission: 10/15/17 - Critical Care Critical Care patient: No
[2017-10-15] MEDS ORDERED: ONDANSETRON 4 MG/2 ML VIAL IVPUSH PRN (15:41)
[2017-10-15] MEDS ORDERED: IBUPROFEN 800 MG/8 ML IJ IVPB PRN (15:41)
[2017-10-15] MEDS: PIPERACILLIN/TAZOB 3.375 GM 3.375 GM in DEXTROSE 5%-WATER - 50 ML IVPB SCH (18:05)
[2017-10-16] MEDS: PIPERACILLIN/TAZOB 3.375 GM 3.375 GM in DEXTROSE 5%-WATER - 50 ML IVPB SCH ×3 (02:55→17:22)
[2017-10-16 07:30] LABS: BASO % 0.2 % (0-2.0); HEMATOCRIT 33.1 % (32.4-45.2); HEMOGLOBIN 10.4 GM/dL (10.7-15.3); MCH 26.8 pg (25.7-33.7); MCHC 31.5 g/dl (32.0-36.0); MEAN CELL VOLUME 85.1 fl (80-96); MONO % 7.2 % (3.8-10.2); NEUT % 84.6 % (42.8-82.8); PLATELET COUNT 184 K/MM3 (134-434); RBC 3.89 M/mm3 (3.60-5.2); RDW 13.5 % (11.6-15.6); WHITE BLOOD COUNT 13.4 K/mm3 (4.0-10.0)
[2017-10-16 08:07] LABS: CHLORIDE 109 mmol/L (98-107); POTASSIUM 4.1 mmol/L (3.5-5.1); SODIUM 140 mmol/L (136-145)
[2017-10-16 08:19] LABS: ALBUMIN 2.9 g/dl (3.4-5.0); ALK PHOS 58 U/L (45-117); ANION GAP 8 (8-16); BILIRUBIN,TOTAL 0.8 mg/dL (0.2-1.0); BLOOD UREA NITROGEN 10 mg/dL (7-18); CO2 23 mmol/L (21-32); CREATININE 0.7 mg/dL (0.55-1.02); GLUCOSE,RANDOM 105 mg/dL (74-106); SGOT/AST 15 U/L (15-37); SGPT/ALT 21 U/L (12-78)
--- NOTE | 2017-10-16 09:05 | OP ---
DATE OF OPERATION: 10/15/2017 PREOPERATIVE DIAGNOSIS: Acute appendicitis. POSTOPERATIVE DIAGNOSIS: Acute appendicitis. PROCEDURE: Laparoscopic appendectomy and lavage. SURGEON: Remi Lynn DO ASSISTANT PROFESSOR OF ARCHAEOLOGY: There is no assistant offset press operator. ANESTHESIOLOGIST: Tez Hollins MD (general) SPECIMEN: Appendix. INTRAOPERATIVE FINDINGS: A right gangrenous, suppurative, non-perforated appendix. DRAINS: None. DISPOSITION: Recovery room in stable condition. BLOOD LOSS: Minimal. BRIEF HISTORY: This is a 37-year-old female who was admitted to [facility] with signs and symptoms of acute appendicitis. She was started on Zosyn antibiotic and presents now for surgery. DESCRIPTION OF PROCEDURE: The patient was placed in supine procedure. General anesthesia was initiated. The abdomen was prepped and draped in sterile fashion , and a Camacho catheter was inserted. Next, a vertical incision was made infraumbilical with scalpel used to cut through the skin and subcutaneous tissue. The fascia was then incised vertically, and the peritoneum entered bluntly. Of note, the patient had a ventral hernia above this incision, which was not addressed at the time of surgery. Next, a 0 Vicryl stitch was placed across the fascial defect and used to secure the Tafoya trocar. Pneumoperitoneum was then created followed by insertion of a 5- mm 30-degree laparoscope. Next, two 5-mm trocars were placed, one suprapubic with care to avoid injuring the bladder and one in the left lower quadrant, lateral to the rectus muscle. At this point, attention was turned towards the right lower quadrant. The appendix was seen. It was gangrenous and suppurative. It was tucked posterior to the terminal ileum and forming a phlegmon with the sigmoid colon. These were carefully teased off exposing the gangrenous appendix that was not perforated. A window was made at its base. The LigaSure device was then used to divide the mesoappendix with multiple welts. The Endo LOKESH Purple Load 45-mm stapler was then used to divide the appendix at its base. The staple line was inspected. It was intact. There was no bleeding, no breaks, no sign of ischemia. Next, a LigaSure device was used to divide the mesoappendix with multiple welts. The retroperitoneal attachments were also divided using the LigaSure. At this point , the appendix was placed in a specimen bag and removed through the infraumbilical trocar site and sent to Pathology marked as specimen. Inflammatory fluid was then suctioned from the pelvis. A limited lavage was done. All returns were clear. The appendix was then placed in a specimen bag and removed through the infraumbilical trocar site. Of note, the appendix likely ruptured within the bag due to pressure at pulling it out, but this was of no risk of contamination. Next, vigorous lavage was done and all return was clear. Trocars were then removed under direct visualization. No bleeding was noted. Pneumoperitoneum was released. The fascia at the infraumbilical trocar site was then closed with multiple interrupted 0 Vicryl sutures, and the 3 skin incisions were closed with Biosyn. Dermabond dressing was placed. Overall, the patient tolerated the procedure well. There were no complications. Camacho catheter which was placed at the beginning of the operation was removed at the end. Again, please note that (1) the ventral hernia above the incision was not addressed, and (2) the appendix was not grossly perforated at the time of surgery. Any perforation noted in the pathological specimen likely occurred during delivery of the specimen. DO CHARLIE BARRAZA/[id number] MTDD
[2017-10-16] MEDS ORDERED: PANTOPRAZOLE SODIUM 40 MG VIAL IVPUSH SCH (10:00)
[2017-10-16] MEDS ORDERED: PT OWN MED DRAWER 7, Y5N ONE ×2 (10:15→17:15)
[2017-10-16] MEDS: ENOXAPARIN NA (PORCINE) 40 MG/0.4 ML DISP.SYRIN SQ SCH (10:23)
[2017-10-16] MEDS ORDERED: PANTOPRAZOLE 40 MG TABLET (FP) PO ONE (10:45)
--- NOTE | 2017-10-16 10:47 | PN ---
Progress Note, Physician History of Present Illness: patient stable doing well post op had gangrenous appendix - Current Medication List Current Medications: Active Medications Enoxaparin Sodium (Lovenox -) 40 mg SQ DAILY [facility] Last Admin: 10/16/17 10:23 Dose: 40 mg Piperacillin Sod/Tazobactam (Sod 3.375 gm/ Dextrose) 50 mls @ 100 mls/hr IVPB Q8H-IV TIEN PRN Reason: Protocol Last Admin: 10/16/17 10:23 Dose: 100 mls/hr Ibuprofen (Caldolor Injection -) 800 mg IVPB Q6H PRN PRN Reason: Pain - Pacu Last Admin: 10/15/17 15:46 Dose: 800 mg Ondansetron HCl (Zofran Injection) 4 mg IVPUSH Q6H PRN PRN Reason: NAUSEA AND/OR VOMITING Pantoprazole Sodium (Protonix -) 40 mg PO DAILY TIEN Pantoprazole Sodium (Protonix -) 40 mg PO ONCE ONE Stop: 10/16/17 10:46 - Objective Vital Signs: Vital Signs Temperature 98.6 F 10/16/17 06:49 Pulse Rate 64 10/16/17 06:49 Respiratory Rate 20 10/16/17 06:49 Blood Pressure 108/54 10/16/17 06:49 O2 Sat by Pulse Oximetry (%) 98 10/15/17 21:00 Constitutional: Yes: No Distress, Calm, Obese Cardiovascular: Yes: Regular Rate and Rhythm Respiratory: Yes: Regular, CTA Bilaterally Gastrointestinal: Yes: Normal Bowel Sounds, Soft Musculoskeletal: Yes: WNL Extremities: Yes: WNL Wound/Incision: Yes: Clean/Dry Neurological: Yes: Alert, Oriented Psychiatric: Yes: Alert, Oriented Labs: CBC, BMP 10/16/17 06:00 10/16/17 06:00 INR, PTT INR 1.36 (0.82-1.09) H 10/15/17 06:19 Assessment/Plan this patient coming in with abd pain and vomiting diagnosed with ac appendicitis ac appendicitis vomiting abd pain leukocytosis plan continue zosyn when patient ready to go home switch on augmentin and finish total of 5 day course rest continue as per surgery and primary team
--- NOTE | 2017-10-16 11:51 | PN ---
Progress Note (short form) - Note Progress Note: surgery pt seen and examined. feels well. ambulating. voiding. tolerating liquids afebrile abd- soft, nt, nd, incisions clean Laboratory Tests 10/16/17 06:00 WBC 13.4 H A/P 1) Pod#1- full liquids, stop ivf, poss d/c tomorrow if remains well without fever on regular diet. 2) gangrenous appendicitis- cont iv abx until tomorrow, possible d/c tomorrow on 5 days augmentin. 3) prophylaxis- lovenox, protonix, oob, spirometer, will follow as outpt in about 2 weeks [phone]
[2017-10-16] MEDS ORDERED: IBUPROFEN 600 MG TABLET (FP) PO PRN (13:30)
--- NOTE | 2017-10-16 15:31 | PN ---
Teaching Attending Note Name of Resident: Alexi Michele ATTENDING PHYSICIAN STATEMENT Time of evaluation: 11:25 AM I saw and evaluated the patient. I reviewed the resident's note and discussed the case with the resident. I agree with the resident's findings and plan as documented. SUBJECTIVE: Patient seen and examined, mild abdominal soreness at laparoscopic site, overall much better. Tolerating clears well. OBJECTIVE: Vital Signs Period Temp Pulse Resp BP Sys/[place] Pulse Ox Last 24 Hr 97.7 F-100.6 F 60-97 16-27 102-131/40-65 98-99 Intake & Output 10/13/17 10/14/17 10/15/17 10/16/17 23:59 23:59 23:59 23:59 Intake Total 750 300 Output Total 720 650 Balance 30 -350 Weight 215 lb 200 lb general: sitting in bed in no acute distress Abdomen: soft mild soreness around laparoscopic site, no voluntary or involuntary guarding or rigidity, positive bowel sounds Home Medication List Medication Instructions Recorded Confirmed Type Norgestimate-Ethinyl Estradiol 1 each PO DAILY 10/14/17 10/15/17 History [Ortho Tri-Cyclen Lo Tablet] Active Medications Generic Name Dose Route Start Last Admin Trade Name Freq PRN Reason Stop Dose Admin Enoxaparin Sodium 40 mg 10/16/17 10:00 10/16/17 10:23 Lovenox - SQ 40 mg DAILY TIEN Administration Piperacillin Sod/Tazobactam 50 mls @ 100 mls/hr 10/15/17 18:00 10/16/17 10:23 Sod 3.375 gm/ Dextrose IVPB 100 mls/hr Q8H-IV TIEN Administration Protocol Ibuprofen 600 mg 10/16/17 13:30 Motrin - PO Q6H PRN FEVER Ondansetron HCl 4 mg 10/15/17 15:41 Zofran Injection IVPUSH Q6H PRN NAUSEA AND/OR VOMITING Pantoprazole Sodium 40 mg 10/17/17 10:00 Protonix - PO DAILY TIEN Laboratory Results - last 24 hr 10/16/17 10/16/17 06:00 06:00 WBC 13.4 H RBC 3.89 Hgb 10.4 L Hct 33.1 MCV 85.1 MCH 26.8 MCHC 31.5 L RDW 13.5 Plt Count 184 MPV 9.0 Neutrophils % 84.6 H Lymphocytes % 8.0 D Monocytes % 7.2 Eosinophils % 0.0 Basophils % 0.2 Sodium 140 Potassium 4.1 Chloride 109 H Carbon Dioxide 23 Anion Gap 8 BUN 10 Creatinine 0.7 Creat Clearance w eGFR > 60 Random Glucose 105 Calcium 8.0 L Total Bilirubin 0.8 AST 15 ALT 21 Alkaline Phosphatase 58 Total Protein 6.0 L Albumin 2.9 L Microbiology 10/14/17 18:35 Urine - Urine Clean Catch Urine Culture - Final Contaminated: Please Repeat 10/15/17 01:08 Blood - Peripheral Venous Blood Culture - Preliminary NO GROWTH OBTAINED AFTER 24 HOURS, INCUBATION TO CONTINUE FOR 4 DAYS. 10/15/17 01:08 Blood - Peripheral Venous Blood Culture - Preliminary NO GROWTH OBTAINED AFTER 24 HOURS, INCUBATION TO CONTINUE FOR 4 DAYS. ASSESSMENT AND PLAN: 37 yof with no significant PMHx admitted with sepsis with acute appendicitis -Sepsis with acute gangrenous appendicitis -Obesity Plan: s/p Laparscopic appendectomty 09/14. Advance diet per surgery. Discussed with kuldeep Delgado today, transition to augmentin in AM d/c morphine. taper iVF as tolerating diet. D/c in 24 hours if tolerating diet well and no new events. PLan discussed with patient in detail, all questions answered.
--- NOTE | 2017-10-16 16:54 | PN ---
Physical Exam: SUBJECTIVE: Patient seen and examined No acute events overnight. Pt reports that pain is well controlled. She denies any nausea or emesis in the hospital. Pt has not had a BM since surgery. OBJECTIVE: Vital Signs Period Temp Pulse Resp BP Sys/[place] Pulse Ox Last 24 Hr 97.7 F-100.6 F 60-95 16-24 102-120/52-73 96-98 GENERAL: middle aged female, awake, alert, and fully oriented, in no acute distress. HEENT: NC, AT, EOMI LUNGS: Breath sounds equal, clear to auscultation bilaterally, no wheezes, no crackles, no accessory muscle use. HEART: Regular rate and rhythm, S1, S2 without murmur, rub or gallop. ABDOMEN: moderately tender on right side, mildly tender on left side, hypoactive BS EXTREMITIES: 2+ pulses, warm, well-perfused, no edema. NEUROLOGICAL: Cranial nerves II through XII grossly intact. Normal speech, gait not observed. Laboratory Results - last 24 hr 10/16/17 10/16/17 06:00 06:00 WBC 13.4 H RBC 3.89 Hgb 10.4 L Hct 33.1 MCV 85.1 MCH 26.8 MCHC 31.5 L RDW 13.5 Plt Count 184 MPV 9.0 Neutrophils % 84.6 H Lymphocytes % 8.0 D Monocytes % 7.2 Eosinophils % 0.0 Basophils % 0.2 Sodium 140 Potassium 4.1 Chloride 109 H Carbon Dioxide 23 Anion Gap 8 BUN 10 Creatinine 0.7 Creat Clearance w eGFR > 60 Random Glucose 105 Calcium 8.0 L Total Bilirubin 0.8 AST 15 ALT 21 Alkaline Phosphatase 58 Total Protein 6.0 L Albumin 2.9 L Active Medications Generic Name Dose Route Start Last Admin Trade Name Freq PRN Reason Stop Dose Admin Enoxaparin Sodium 40 mg 10/16/17 10:00 10/16/17 10:23 Lovenox - SQ 40 mg DAILY TIEN Administration Piperacillin Sod/Tazobactam 50 mls @ 100 mls/hr 10/15/17 18:00 10/16/17 10:23 Sod 3.375 gm/ Dextrose IVPB 100 mls/hr Q8H-IV TIEN Administration Protocol Ibuprofen 600 mg 10/16/17 13:30 Motrin - PO Q6H PRN FEVER Ondansetron HCl 4 mg 10/15/17 15:41 Zofran Injection IVPUSH Q6H PRN NAUSEA AND/OR VOMITING Pantoprazole Sodium 40 mg 10/17/17 10:00 Protonix - PO DAILY TIEN ASSESSMENT/PLAN: 37 F with no pmhx presents with abdominal pain, found to have a acute appendicitis on CT. #Acute Appendicitis -POD #1 for lap appendectomy with gangrenous appendix -NS @ 83cc/hr -pain control with ibuprofen -advance diet as tolerated -ID on board: continue zosyn for now and d/c on augmentin for 5 day total course #FEN/ppx -NS @83cc/hr -electrolytes wnl -full liquid diet -protonix -lovenox #Dispo -likely d/c home galileo if tolerating regular diet and fevers. Case discussed with attending, Dr. Garland. -Alexi Michele MD PGY1 Visit type - Emergency Visit Emergency Visit: Yes ED Registration Date: 10/15/17 Care time: The patient presented to the Emergency Department on the above date and was hospitalized for further evaluation of their emergent condition. - New Patient This patient is new to me today: No - Critical Care Critical Care patient: No
--- NOTE | 2017-10-16 17:57 | PN ---
Progress Note (short form) - Note Progress Note: POD #1 - s/p laparoscopic appendectomy under general anesthesia. VSS. Pt. doing well, resting comfortably in bed. No complaints. No apparent anesthetic complications noted. Coninue current care.
[2017-10-17] MEDS: PIPERACILLIN/TAZOB 3.375 GM 3.375 GM in DEXTROSE 5%-WATER - 50 ML IVPB SCH ×2 (01:50→09:50)
[2017-10-17 08:01] LABS: BASO % 0.2 % (0-2.0); EOS % 0.1 % (0-4.5); HEMATOCRIT 30.3 % (32.4-45.2); HEMOGLOBIN 9.7 GM/dL (10.7-15.3); LYMPH % 21.4 % (8-40); MCH 27.2 pg (25.7-33.7); MCHC 32.1 g/dl (32.0-36.0); MEAN CELL VOLUME 84.7 fl (80-96); MONO % 5.9 % (3.8-10.2); NEUT % 72.4 % (42.8-82.8); PLATELET COUNT 181 K/MM3 (134-434); RBC 3.58 M/mm3 (3.60-5.2); RDW 13.5 % (11.6-15.6); WHITE BLOOD COUNT 9.4 K/mm3 (4.0-10.0)
[2017-10-17] MEDS ORDERED: PT OWN MED DRAWER 7, Y5N ONE (09:43)
[2017-10-17] MEDS: ENOXAPARIN NA (PORCINE) 40 MG/0.4 ML DISP.SYRIN SQ SCH (09:50)
[2017-10-17] MEDS ORDERED: PANTOPRAZOLE 40 MG TABLET (FP) PO SCH (10:00)
--- NOTE | 2017-10-17 12:56 | PN ---
Progress Note, Physician History of Present Illness: patient stable doing well post op tolerating diet - Current Medication List Current Medications: Active Medications Enoxaparin Sodium (Lovenox -) 40 mg SQ DAILY [facility] Last Admin: 10/17/17 09:50 Dose: 40 mg Piperacillin Sod/Tazobactam (Sod 3.375 gm/ Dextrose) 50 mls @ 100 mls/hr IVPB Q8H-IV TIEN PRN Reason: Protocol Last Admin: 10/17/17 09:50 Dose: 100 mls/hr Ibuprofen (Motrin -) 600 mg PO Q6H PRN PRN Reason: FEVER Pantoprazole Sodium (Protonix -) 40 mg PO DAILY [facility] Last Admin: 10/17/17 09:50 Dose: 40 mg - Objective Vital Signs: Vital Signs Temperature 98.7 F 10/17/17 06:00 Pulse Rate 63 10/17/17 06:00 Respiratory Rate 18 10/17/17 06:00 Blood Pressure 122/72 10/17/17 06:00 O2 Sat by Pulse Oximetry (%) 96 10/16/17 21:00 Constitutional: Yes: No Distress, Calm Cardiovascular: Yes: Regular Rate and Rhythm Respiratory: Yes: Regular, CTA Bilaterally Gastrointestinal: Yes: Normal Bowel Sounds, Soft Musculoskeletal: Yes: WNL Extremities: Yes: WNL Neurological: Yes: Alert, Oriented Psychiatric: Yes: Alert, Oriented Labs: CBC, BMP 10/17/17 06:00 10/16/17 06:00 INR, PTT INR 1.36 (0.82-1.09) H 10/15/17 06:19 Assessment/Plan this patient coming in with abd pain and vomiting diagnosed with ac appendicitis ac appendicitis vomiting abd pain leukocytosis plan can change to oral abx rest as per primary team
--- NOTE | 2017-10-17 13:27 | PN ---
Teaching Attending Note Name of Resident: Alexi Michele ATTENDING PHYSICIAN STATEMENT Time of evaluation: 11:30 AM I saw and evaluated the patient. I reviewed the resident's note and discussed the case with the resident. I agree with the resident's findings and plan as documented. SUBJECTIVE: patient seen and examined, tolerating diet well, no new compaints. Pain better, more as soreness around the laparoscopic site. OBJECTIVE: Vital Signs Period Temp Pulse Resp BP Sys/[place] Pulse Ox Last 24 Hr 98.6 F-99.7 F 63-74 18-20 110-136/52-79 96 Intake & Output 10/14/17 10/15/17 10/16/17 10/17/17 23:59 23:59 23:59 23:59 Intake Total 750 650 50 Output Total 720 650 Balance 30 0 50 Weight 215 lb 200 lb abdomen: soft, mild tenderness around laparoscopic site, no voluntary or involuntary guarding or rigidity, positive bowel sounds General: sitting in bed in no acute distress Home Medication List Medication Instructions Recorded Confirmed Type Norgestimate-Ethinyl Estradiol 1 each PO DAILY 10/14/17 10/15/17 History [Ortho Tri-Cyclen Lo Tablet] Active Medications Generic Name Dose Route Start Last Admin Trade Name Freq PRN Reason Stop Dose Admin Amoxicillin/Clavulanate Potassium 1 tab 10/17/17 17:30 Augmentin - 875mg Tablet PO BID@0800,1730 TIEN Enoxaparin Sodium 40 mg 10/16/17 10:00 10/17/17 09:50 Lovenox - SQ 40 mg DAILY TIEN Administration Ibuprofen 600 mg 10/16/17 13:30 Motrin - PO Q6H PRN FEVER Pantoprazole Sodium 40 mg 10/17/17 10:00 10/17/17 09:50 Protonix - PO 40 mg DAILY TIEN Administration Laboratory Results - last 24 hr 10/17/17 06:00 WBC 9.4 RBC 3.58 L Hgb 9.7 L Hct 30.3 L MCV 84.7 MCH 27.2 MCHC 32.1 RDW 13.5 Plt Count 181 MPV 9.0 Neutrophils % 72.4 Lymphocytes % 21.4 D Monocytes % 5.9 Eosinophils % 0.1 D Basophils % 0.2 Microbiology 10/15/17 01:08 Blood - Peripheral Venous Blood Culture - Preliminary NO GROWTH OBTAINED AFTER 48 HOURS, INCUBATION TO CONTINUE FOR 3 DAYS. 10/15/17 01:08 Blood - Peripheral Venous Blood Culture - Preliminary NO GROWTH OBTAINED AFTER 48 HOURS, INCUBATION TO CONTINUE FOR 3 DAYS. 10/14/17 18:35 Urine - Urine Clean Catch Urine Culture - Final Contaminated: Please Repeat ASSESSMENT AND PLAN: 37 yof with no significant PMHx admitted with sepsis with acute appendicitis -Sepsis with acute gangrenous appendicitis -Obesity Plan: s/p Laparscopic appendectomty 09/14. doing well, no concerns. D/c home on augmentin for 5 days. patient reports prior h/o iron deficiency anemia, advised to follow up with PCP. PLan discussed with patient in detail, all questions answered.
[2017-10-17 15:16] VITALS: BP 141/58
[2017-10-17 15:24] VITALS: PULSE 80; TEMP 98.2
--- NOTE | 2017-10-17 15:42 | DS ---
Physical Exam: SUBJECTIVE: Patient seen and examined No acute events overnight. Pt reports that pain is well controlled. She denies any nausea or emesis in the hospital. She is tolerating a regular diet well. OBJECTIVE: Vital Signs Period Temp Pulse Resp BP Sys/[place] Pulse Ox Last 24 Hr 98.2 F-99.7 F 63-80 18-20 110-141/52-79 96-99 PHYSICAL EXAM GENERAL: middle aged female, awake, alert, and fully oriented, in no acute distress. HEENT: NC, AT, EOMI LUNGS: Breath sounds equal, clear to auscultation bilaterally, no wheezes, no crackles, no accessory muscle use. HEART: Regular rate and rhythm, S1, S2 without murmur, rub or gallop. ABDOMEN: mildy tender on right side, mildly tender on left side, normoactive BS EXTREMITIES: 2+ pulses, warm, well-perfused, no edema. NEUROLOGICAL: Cranial nerves II through XII grossly intact. Normal speech, gait not observed. LABS Laboratory Results - last 24 hr 10/17/17 06:00 WBC 9.4 RBC 3.58 L Hgb 9.7 L Hct 30.3 L MCV 84.7 MCH 27.2 MCHC 32.1 RDW 13.5 Plt Count 181 MPV 9.0 Neutrophils % 72.4 Lymphocytes % 21.4 D Monocytes % 5.9 Eosinophils % 0.1 D Basophils % 0.2 HOSPITAL COURSE: Date of Admission:10/15/17 Date of Discharge: 10/17/17 37 F with no pmhx who presented with abdominal pain and was found to have acute appendicitis on CT. Pt was treated with a lap appe, and appendix was found to be gangrenous. Pt was then treated with IV abx, pain control, and her diet was advanced as tolerated. Pt was found to be anemic in the hospital. Today, pt has no subjective complaints, has normal vitals, an improving physical exam, normal labs, and is stable for discharge home. Pt instructed to finish course of augmentin and to f/u with PCP and general surgery. She was also told to obtain a workup for her anemia with her PCP. -Alexi Michele MD PGY1 Minutes to complete discharge: 37 Discharge Summary Reason For Visit: ACUTE APPENDICITIS Condition: Stable - Instructions Diet, Activity, Other Instructions: You presented with abdominal pain and were found to have appendicitis. You underwent a laparoscopic appendectomy. You were also found to have anemia. Medications: Continue taking all previous medications The following medication has been added new: 1. take augmentin 875mg twice a day for 5 more days. Follow-ups: 1. Please visit your PCP within one week. If you don't have one, we have referred you to Dr. Irizarry's office. Please see Dr. Parr. Please have them work you up for your anemia. 2. Please visit general surgery, Dr. Malave, in 1-2 weeks ([phone]). Please call his office on discharge to arrange follow up. 3. You will need monitoring for your anemia with your PCP, recommend iron panel and will likely need iron supplementation. If you develop any fevers, chills, worsening abdominal pain, fevers, discharge from wound site or any other concerning symptoms, return to the ED. Referrals: Juancarlos Irizarry MD [Staff Physician] - 1 Week (Please see Dr. Parr) Remi Lynn MD [Staff Physician] - Disposition: HOME - Home Medications Comprehensive Discharge Medication List: Ambulatory Orders Norgestimate-Ethinyl Estradiol [Ortho Tri-Cyclen Lo Tablet] 1 each PO DAILY Amoxicillin/Potassium Clav [Augmentin 875-125 Tablet] 1 each PO BID #10 tablet 10/17/17 This patient is new to me today: No Emergency Visit: Yes ED Registration Date: 10/15/17 Care time: The patient presented to the Emergency Department on the above date and was hospitalized for further evaluation of their emergent condition. Critical Care patient: No - Discharge Referral Referred to [facility] Med [facility].: No
--- NOTE | 2017-10-17 16:11 | PATH ---
Surgical Pathology Report Patient Name: CLAUDIA PUCKETT [facility]. Rec. #: [id number] /Age/Gender: 1980 (Age: 37) / F Account: [id number] Location: [facility] MED/SURG Taken: 10/15/2017 Received: 10/16/2017 Reported: 10/17/2017 Physicians: Teodoro Garland M.D. Specimen(s) Received APPENDIX Clinical History Acute appendicitis Final Diagnosis APPENDIX, LAPAROSCOPIC APPENDECTOMY: ACUTE AND CHRONIC GANGRENOUS APPENDICITIS AND PERIAPPENDICITIS. Electronically Signed Sarah Ewrin M.D. Gross Description Received in formalin, labeled "appendix," is a 15 cm. in length dilated vermiform appendix with a stapled margin of resection and abundant attached fat. The serosa is rodriguez-brown with attached exudate. Sectioning reveals a dilated lumen containing red-brown blood as well as brown fecal material. The wall of the appendix appears necrotic and averages 0.1 cm. in thickness. Vocational Case Manager sections are submitted in one cassette. 10/16/201710/16/2017
[2017-10-17] MEDS ORDERED: AMOX TR/POT CLAV 875MG/125MG TABLETS (FP) PO SCH (17:30)
== END 2017-10-17 15:40 | disposition home or self-care (01) | DRG 225 ==
LOC: JER 15:09 → JERBED 10-15 00:44 → J8W 10-15 18:26
PROVIDERS: ADMIT Internal Medicine; ATTEND Hospitalist
PROC: 0DTJ4ZZ Resection of Appendix, Percutaneous Endoscopic Approach (ICD-10-PCS; principal; 2017-10-15 11:30)
DX: K35.80 Unspecified acute appendicitis (principal); R10.31 Right lower quadrant pain; D72.829 Elevated white blood cell count, unspecified; E66.9 Obesity, unspecified; Z68.31 Body mass index [BMI] 31.0-31.9, adult
CPT/HCPCS: 36415; 71046-TC-FY; 74176-TC; 80053; 81003; 81015; 83605; 83690; 83735; 84100; 84703; 85025; 85610; 85730; 86850; 86900; 86901; 87040; 87086; 88304-TC; 94010; 94760; 99285-25